=== PATIENT | female | born 1990 | race African-American/Black ===

== ENCOUNTER 2019-02-27 11:36 | Emergency (ER) | payer SELFPAY, OTHER | END 2019-02-27 13:38 | disposition home or self-care (01) | LOC: JERFT 11:36 ==

== ENCOUNTER 2022-04-07 14:36 | Emergency (ER) | payer OTHER ==
[2022-04-07 14:58] VITALS: BP 118/83; PULSE 92; RESP 17; TEMP 98.6; BMI 24.4
[2022-04-07] MEDS ORDERED: DEXAMETHASONE SOD PHOSPHATE 10 MG/1 ML VIAL PO ONE (15:44)
== END 2022-04-07 16:13 | disposition home or self-care (01) ==
LOC: JER 14:36
DX: J06.9 Acute upper respiratory infection, unspecified (principal)
CPT/HCPCS: 99283-25; J1100

== ENCOUNTER 2022-12-11 10:49 | Emergency (ER) | payer OTHER ==
[2022-12-11 11:26] VITALS: BP 129/65; PULSE 108; RESP 17; TEMP 99.1; BMI 23.8
[2022-12-11] MEDS ORDERED: ACETAMINOPHEN 325 MG TABLET (FP) ONE (13:36)
[2022-12-11] MEDS ORDERED: IBUPROFEN 600 MG TABLET (FP) PO ONE (13:37)
== END 2022-12-11 13:41 | disposition home or self-care (01) ==
LOC: JER 10:49 → JERFT 10:49
DX: J02.9 Acute pharyngitis, unspecified (principal); R05.1 Acute cough; J06.9 Acute upper respiratory infection, unspecified
CPT/HCPCS: 87070; 87651; 99283-25